=== PATIENT | male | born 1935 | race Caucasian/White ===

== ENCOUNTER 2016-10-01 22:26 | Inpatient (IN) | payer MEDICARE ==
[~2016-10-01] VITALS: Ht 175.3 cm; Wt 70.3 kg
[2016-10-01 23:11] LABS: ABG BASE EXCESS 0.4 mmol/L; ABG HCO3 23.3 mmol/L; ABG PCO2 29.8 mmHg (35.0-45.0); ABG PH 7.511 (7.350-7.450); ABG PO2 65.3 mmHg (75.0-100.0); ABG SITE LEFT RADIAL; ABG TOTAL HEMOGLOBIN 6.5 G/dL (13.5-18.0); COHb 2.4 % (0.5-1.5); MetHb 0.7 % (0.0-1.5); O2Hb 89.6 % (94.0-97.0); VENT MODE Nasal Cannula
[2016-10-01 23:38] LABS: BASOPHILS # (AUTO) 0.1 K/uL (0.0-8.0); BASOPHILS % (AUTO) 0.3 % (0.0-2.0); LYMPHOCYTES # (AUTO) 23.8 K/UL (0.8-4.8); LYMPHOCYTES % (AUTO) 75.7 % (20.5-51.5); MEAN CORPUSCULAR HEMOGLOBIN 33.7 UUG (27.0-31.0); MEAN CORPUSCULAR HGB CONC 32 g/dL (32.0-37.0); MEAN CORPUSCULAR VOLUME 106.1 FL (82.0-92.0); MONOCYTES # (AUTO) 2.2 K/UL (0.1-1.30); MONOCYTES % (AUTO) 6.9 % (0.0-11.0); NEUTROPHILS # (AUTO) 5.4 K/UL (1.8-8.9); NEUTROPHILS % (AUTO) 17.1 % (38.5-71.5); PLATELET COUNT (AUTO) 125 K/UL (150-450)
[2016-10-01 23:46] LABS: CARBON DIOXIDE 25 mmol/L (21-32); CHLORIDE 105 mmol/L (98-107); CREATININE 1.3 mg/dL (0.6-1.3); GLUCOSE 93 mg/dL (74-106); POTASSIUM 4.4 mmol/L (3.5-5.1); UREA NITROGEN, BLOOD 51 mg/dL (7-18)
[2016-10-01 23:55] LABS: HEMATOCRIT 19.2 % (40-50); HEMOGLOBIN 6.1 G/DL (14.0-18.0); RED BLOOD CELL COUNT(AUTO) 1.81 MIL/UL (4.7-6.1); WHITE BLOOD COUNT (AUTO) 31.5 K/UL (4.0-11.2)
[2016-10-02] VITALS (30 sets, daily range): BP systolic 93–148; BP diastolic 37–83
[2016-10-02 00:01] LABS: ALANINE AMINOTRANSFERASE 30 U/L (16-63); ALKALINE PHOSPHATASE 163 U/L (50-136); ASPARTATE AMINOTRANSFERASE 50 U/L (15-37); BILIRUBIN,TOTAL 1.7 mg/dL (0.2-1.0)
[2016-10-02 00:14] LABS: *OCCULT BLOOD STOOL POSITIVE (NEGATIVE)
--- NOTE | 2016-10-02 00:53 | NUR ---
PATIENT REFUSED MCKINNEY CATHER. NOTIFIED MD. MD PATRICIA FOR CONDOM CATHETER
[2016-10-02 00:55] LABS: LYMPHOCYTES % (MANUAL) 75 % (20-40); MONOCYTES % (MANUAL) 8 % (2-10); NEUTROPHILS % (MANUAL) 17 % (42-75)
--- NOTE | 2016-10-02 00:58 | NUR ---
CT QUESTIONLILIANA AND CONSENT SIGNED BY PATIENT'S , GEMA GRAHAM.
[2016-10-02] MEDS ORDERED: IBRU140C PO (01:54)
[2016-10-02] MEDS ORDERED: SERT100T PO (01:54)
[2016-10-02] MEDS ORDERED: AMLO5TAB2 PO (01:54)
[2016-10-02] MEDS ORDERED: ALLO300T2 PO (01:54)
--- NOTE | 2016-10-02 02:10 | NUR ---
Patient returned from CT. No acute distress noted. No cardiorespiratory distress noted.
--- NOTE | 2016-10-02 04:00 | NUR ---
1st transfusion PRBCs started at 0239. Verified unit with 2nd RN, Chris Landeros RN See vitals documentation
--- NOTE | 2016-10-02 05:00 | NUR ---
Pt. admitted to CCU-2 in ZAKIYA-status, under care of Dr. Anderson. Belongs List completed. Transported with ACLS protocol.
--- NOTE | 2016-10-02 05:15 | NUR ---
Admitted an 81 years old male patient from ER via [facility] with DX: sepsis, and severe anemia. To CCU 2. Assessment completed. With multiple skin insults. Pictures taken and documented.
--- NOTE | 2016-10-02 05:50 | NUR ---
2nd unit of PRBCs started. at bedside. Admission data completed. Patient's Radhika informed of plan of care. Verbalized understanding.
--- NOTE | 2016-10-02 06:00 | NUR ---
Per Dr Mcfarland, ER-MD, patient's primary physician, Dr. Smallwood, called. Message left to notify that patient has been admitted.
--- NOTE | 2016-10-02 07:20 | NUR ---
Spoke to Dr. Allen about patient's status. Orders received. Blood infusing well.
[2016-10-02 09:18] LABS: *BILIRUBIN,URIN NEGATIVE (NEGATIVE); *BLOOD, URINE 3+ (NEGATIVE); *COLOR,URINE YELLOW (YELLOW); *KETONES,URINE NEGATIVE (NEGATIVE); LEUKOCYTE ESTERASE ,URINE NEGATIVE (NEGATIVE); NITRITE, URINE NEGATIVE (NEGATIVE); PH,URINE 5.5 (5.0-8.0); UGLUCOSE NEGATIVE (NEGATIVE)
[2016-10-02 09:31] LABS: *CLARITY,URINE HAZY (CLEAR); *PROTEIN,URINE NEGATIVE (NEGATIVE)
[2016-10-02 09:33] LABS: BACTERIA,URINE NONE SEEN /HPF (NONE SEEN); RBC,URINE 20-50 /HPF (0-3); SQUAMOUS EPITHELIAL CELL,UR FEW /HPF (NONE SEEN); WBC,URINE 0-3 /HPF (0-3)
[2016-10-02 10:20] LABS: BASOPHILS % (AUTO) 0.1 % (0.0-2.0); HEMOGLOBIN 7.8 G/DL (14.0-18.0); LYMPHOCYTES # (AUTO) 20.8 K/UL (0.8-4.8); LYMPHOCYTES % (AUTO) 69.6 % (20.5-51.5); MEAN CORPUSCULAR HEMOGLOBIN 32.6 UUG (27.0-31.0); MEAN CORPUSCULAR HGB CONC 33 g/dL (32.0-37.0); MEAN CORPUSCULAR VOLUME 97.7 FL (82.0-92.0); MONOCYTES # (AUTO) 2.5 K/UL (0.1-1.30); MONOCYTES % (AUTO) 8.2 % (0.0-11.0); NEUTROPHILS # (AUTO) 6.6 K/UL (1.8-8.9); NEUTROPHILS % (AUTO) 22.1 % (38.5-71.5); PLATELET COUNT (AUTO) 116 K/UL (150-450); WHITE BLOOD COUNT (AUTO) 29.9 K/UL (4.0-11.2)
[2016-10-02 10:22] LABS: RED BLOOD CELL COUNT(AUTO) 2.39 MIL/UL (4.7-6.1)
[2016-10-02 10:23] LABS: HEMATOCRIT 23.3 % (40-50)
[2016-10-02 10:33] LABS: ALANINE AMINOTRANSFERASE 27 U/L (16-63); ALKALINE PHOSPHATASE 147 U/L (50-136); ASPARTATE AMINOTRANSFERASE 46 U/L (15-37); BILIRUBIN,TOTAL 3.3 mg/dL (0.2-1.0); CARBON DIOXIDE 23 mmol/L (21-32); CHLORIDE 107 mmol/L (98-107); CREATININE 1.1 mg/dL (0.6-1.3); GLUCOSE 90 mg/dL (74-106); PHOSPHOROUS 5.1 mg/dL (2.5-4.9); POTASSIUM 4.1 mmol/L (3.5-5.1); TOTAL PROTEIN, SERUM 4.9 g/dL (6.4-8.2); UREA NITROGEN, BLOOD 45 mg/dL (7-18)
[2016-10-02 11:24] LABS: BAND % (MANUAL) 13 % (0-10); LYMPHOCYTES % (MANUAL) 61 % (20-40); MONOCYTES % (MANUAL) 3 % (2-10); NEUTROPHILS % (MANUAL) 23 % (42-75)
--- NOTE | 2016-10-02 11:39 | NUR ---
CLINICAL PHARMACY NOTE:VANCOMYCIN DOSING Subjective: To continue vancomycin dosing on 81 y/o male for cellulitis,sepsis, pna. patient received vanco 1gm IVPB x1 in ED on 10/01 at 2330 ht 5'9'' wt 163 lb Objective: Temp 98 BUN 45 Scr 1.1 WBC 29.9 (hx-CLL) Assessment/Plan: will start vancomycin 1250mg IVPB q20h for predicted vanco trough level of 16.6 mcg/ml at steady state. 1st dose of this regimen is due today at 1999. Plan to draw vanco trough level before 4th dose (not yet ordered) Will continue monitoring renal function and will adjust if were to change. Will continue to follow
--- NOTE | 2016-10-02 20:00 | NUR ---
at bedside & spoke to Dr Allen via telephone. Updated as to nursing cares.
--- NOTE | 2016-10-02 23:15 | NUR ---
ROBERT CARBALLO NWing at bedside / assess patient.
[2016-10-03] VITALS (27 sets, daily range): BP systolic 90–122; BP diastolic 34–73
[2016-10-03 05:35] LABS: BASOPHILS % (AUTO) 0.1 % (0.0-2.0); HEMOGLOBIN 7.2 G/DL (14.0-18.0); LYMPHOCYTES # (AUTO) 15.9 K/UL (0.8-4.8); LYMPHOCYTES % (AUTO) 60.8 % (20.5-51.5); MEAN CORPUSCULAR HEMOGLOBIN 32.9 UUG (27.0-31.0); MEAN CORPUSCULAR HGB CONC 33 g/dL (32.0-37.0); MEAN CORPUSCULAR VOLUME 99.5 FL (82.0-92.0); MONOCYTES # (AUTO) 1.9 K/UL (0.1-1.30); MONOCYTES % (AUTO) 7.3 % (0.0-11.0); NEUTROPHILS # (AUTO) 8.3 K/UL (1.8-8.9); NEUTROPHILS % (AUTO) 31.8 % (38.5-71.5); PLATELET COUNT (AUTO) 110 K/UL (150-450); WHITE BLOOD COUNT (AUTO) 26.1 K/UL (4.0-11.2)
[2016-10-03 06:04] LABS: ALANINE AMINOTRANSFERASE 23 U/L (16-63); ALKALINE PHOSPHATASE 129 U/L (50-136); ASPARTATE AMINOTRANSFERASE 42 U/L (15-37); BILIRUBIN,TOTAL 4.2 mg/dL (0.2-1.0); CARBON DIOXIDE 25 mmol/L (21-32); CHLORIDE 109 mmol/L (98-107); CHOLESTEROL 52 mg/dL (<200); CREATININE 0.9 mg/dL (0.6-1.3); GLUCOSE 96 mg/dL (74-106); HDL CHOLESTEROL 14 mg/dL (40-60); MAGNESIUM 2.2 mg/dL (1.8-2.4); POTASSIUM 3.7 mmol/L (3.5-5.1); TOTAL PROTEIN, SERUM 4.8 g/dL (6.4-8.2); TRIGLYCERIDES 51 MG/DL (30-150); UREA NITROGEN, BLOOD 41 mg/dL (7-18)
[2016-10-03 06:11] LABS: LIPASE 29 U/L (73-393)
[2016-10-03 06:15] LABS: THYROID STIMULATING HORMONE 2.902 mIU/mL (0.358-3.740)
[2016-10-03 06:16] LABS: HEMATOCRIT 21.8 % (40-50); RED BLOOD CELL COUNT(AUTO) 2.19 MIL/UL (4.7-6.1)
--- NOTE | 2016-10-03 07:30 | NUR ---
Report received.Pt remains awake,responsive to tactile,verbal stimuli.No s/s of distress.SR on monitor.O2 at 2l via NC tolerated well.Seen,examined by .
[2016-10-03 09:44] LABS: BAND % (MANUAL) 9 % (0-10); LYMPHOCYTES % (MANUAL) 65 % (20-40); METAMYELOCYTES % 1 % (0-1); MONOCYTES % (MANUAL) 4 % (2-10); NEUTROPHILS % (MANUAL) 21 % (42-75)
--- NOTE | 2016-10-03 09:48 | NUR ---
Blood transfusion in progress.No adverse reaction noted.Will continue to monitor
--- NOTE | 2016-10-03 10:06 | NUR ---
CLINICAL PHARMACY NOTE:VANCOMYCIN DOSING Subjective: To continue vancomycin dosing on 81 y/o male for cellulitis,sepsis, pna. ht 5'9'' wt 163 lb Objective: Temp 97.2 BUN 41 Scr 0.9 WBC 26.1 (hx-CLL) Assessment/Plan: Since srcr has decreased, will change vancomycin 1250mg IVPB q20h to vancomycin 1250mg IVPB q19h for predicted vanco trough level of 16 mcg/ml at steady state. 2nd dose of this regimen is due today at 1500. Plan to draw vanco trough level before 4th dose (not yet ordered) Will continue monitoring renal function and will adjust if were to change. Will continue to follow
--- NOTE | 2016-10-03 10:47 | NUR ---
Pt at bedside,updated on pt information.
--- NOTE | 2016-10-03 11:00 | NUR ---
Pt refusing to sign consent for Nuclear study till she speaks with .Called [facility],left message for .
--- NOTE | 2016-10-03 12:00 | NUR ---
Blood transfusion completed.Pt tolerated procedure well.
--- NOTE | 2016-10-03 13:36 | NUR ---
Spoke with regarding Nuclear Test.Informed him that refusing the test.New orders received to cancel test.
--- NOTE | 2016-10-03 14:10 | NUR ---
SPOKE WITH REGARDING PT IS POSITIVE FOR MRSA IN NARES.NO NEW ORDERS.
--- NOTE | 2016-10-03 16:26 | NUR ---
PT IS AGITATED,TRYING TO GET OUT OF BED,SHAKING.MEDICATED WITH ATIVAN 0.5MG IV.WILL CONTINUE TO MONITOR.
--- NOTE | 2016-10-03 17:05 | NUR ---
CALLED YESEN[facility] FLORES TO REPORT TEMP 101.1 RECTAL.NO NEW ORDERS.MEDICATED WITH TYLENOL PER RECTUM,COOLING MEASURES APPLIED.
--- NOTE | 2016-10-03 23:50 | NUR ---
RECEIVED PATIENT TRANSFER FROM CCU,TELE -TD STATUS, PATIENT DROWSY/SEDATED,RESPONSIVE TO PAINFUL STIMULI,TEMP 98.9 AXILLARY,BP 105/54, O2 SAT 95% ON O2 2L/M VIA N/C,SR ON TELE MONITOR,NO S/S OF DISTRESS NOTED,PICC LINE TO RIGHT UPPER ARM,NPO STATUS, IVF GOING ON,TURN AND REPOSITION,SKIN CARE PROVIDED.
--- NOTE | 2016-10-03 23:50 | NUR ---
Pt transferred to Room 211 via bed, ZAKIYA status, accompanied by Second Floor RNs.
[2016-10-04] VITALS: BP 105/54
[2016-10-04 04:00] VITALS: BP 102/60
--- NOTE | 2016-10-04 06:17 | NUR ---
PATIENT IS AFEBRILE,NON VERBAL,RESPONSIVE TO VERBAL STIMULI SMILE,BUT UNABLE TO FOLLOW SIMPLE INSTRUCTIONS,REMAINS LETHARGIC,GENERALIZED EDEMATOUS NOTE,NSR ON MONITOR.
[2016-10-04 06:55] LABS: BASOPHILS # (AUTO) 0.2 K/uL (0.0-8.0); BASOPHILS % (AUTO) 0.9 % (0.0-2.0); LYMPHOCYTES # (AUTO) 9.6 K/UL (0.8-4.8); MEAN CORPUSCULAR HEMOGLOBIN 31.5 UUG (27.0-31.0); MEAN CORPUSCULAR HGB CONC 32 g/dL (32.0-37.0); MEAN CORPUSCULAR VOLUME 97.5 FL (82.0-92.0); MONOCYTES # (AUTO) 0.3 K/UL (0.1-1.30); MONOCYTES % (AUTO) 1.4 % (0.0-11.0); NEUTROPHILS # (AUTO) 9.2 K/UL (1.8-8.9); NEUTROPHILS % (AUTO) 47.7 % (38.5-71.5)
[2016-10-04 06:56] LABS: HEMATOCRIT 25.6 % (40-50); HEMOGLOBIN 8.3 G/DL (14.0-18.0); RED BLOOD CELL COUNT(AUTO) 2.63 MIL/UL (4.7-6.1); WHITE BLOOD COUNT (AUTO) 19.3 K/UL (4.0-11.2)
[2016-10-04 06:57] LABS: PLATELET COUNT (AUTO) 83 K/UL (150-450)
--- NOTE | 2016-10-04 07:30 | NUR ---
Lethargic, but easily arousable, responds to verbal and painful stimuli. Confused, garbled speech. On moderate high back rest. O2 at 3L/NC with O2 sat og 99%. Noted wheezing. IVF infusing.
[2016-10-04 08:00] VITALS: BP 109/46
[2016-10-04 08:04] LABS: BAND % (MANUAL) 7 % (0-10); EOSINOPHILS % (MANUAL) 1 % (0-8); LYMPHOCYTES % (MANUAL) 46 % (20-40); METAMYELOCYTES % 4 % (0-1); MONOCYTES % (MANUAL) 4 % (2-10); MYELOCYTES % 2 % (0-0); NEUTROPHILS % (MANUAL) 36 % (42-75)
--- NOTE | 2016-10-04 10:00 | NUR ---
Sponge bath given. Wound care done. Repositioned comfortably.
[2016-10-04 10:03] LABS: ALANINE AMINOTRANSFERASE 21 U/L (16-63); ALKALINE PHOSPHATASE 126 U/L (50-136); ASPARTATE AMINOTRANSFERASE 34 U/L (15-37); BILIRUBIN,TOTAL 5.7 mg/dL (0.2-1.0); CARBON DIOXIDE 23 mmol/L (21-32); CHLORIDE 114 mmol/L (98-107); CREATININE 0.8 mg/dL (0.6-1.3); GLUCOSE 121 mg/dL (74-106); MAGNESIUM 2.4 mg/dL (1.8-2.4); PHOSPHOROUS 3.9 mg/dL (2.5-4.9); POTASSIUM 3.5 mmol/L (3.5-5.1); TOTAL PROTEIN, SERUM 4.6 g/dL (6.4-8.2); UREA NITROGEN, BLOOD 44 mg/dL (7-18)
[2016-10-04 11:40] VITALS: BP 101/42
--- NOTE | 2016-10-04 13:00 | NUR ---
Started on pureed diet, assisted by , tolerated.
[2016-10-04 13:08] LABS: HEPATITIS B SURFACE AB Non Reactive (.); HEPATITIS B SURFACE AG Negative (Negative)
--- NOTE | 2016-10-04 13:30 | NUR ---
PT gia initiated.
--- NOTE | 2016-10-04 14:20 | NUR ---
CLINICAL PHARMACY NOTE:VANCOMYCIN DOSING Subjective: To continue vancomycin dosing on 81 y/o male for cellulitis,sepsis, pna. ht 5'9'' wt 163 lb Objective: Temp 98.9 BUN 44 Scr 0.8 WBC 19.3 (hx-CLL) Assessment/Plan: Continue vancomycin 1250mg IVPB q19h for predicted vanco trough level of 16 mcg/ml at steady state. 3rd dose of this regimen was given today at 1021. Plan to draw vanco trough level before 4th dose (ordered for tomorrow at 0430). Will continue monitoring renal function and will adjust if were to change. Will continue to follow
--- NOTE | 2016-10-04 14:49 | NUR ---
Echo cardio gram done at bedside
[2016-10-04 15:56] VITALS: BP 109/51
--- NOTE | 2016-10-04 16:38 | NUR ---
Discharge Plan: Provided a New Lifestyles booklet to the patient's , Radhika. She requested for his information to be faxed to the following facilities in order of preference: 1. [facility] - - [facility] stated that they will admit the patient once stable 2. [facility] - - [facility]ia confirmed that they will have a bed available for the patient 3. [facility] - - Nelly said they will be able to accommodate the patient.
--- NOTE | 2016-10-04 17:46 | NUR ---
Assisted with dinner, able to consume 75% of food served. Repositioned comfortably in bed.
--- NOTE | 2016-10-04 20:00 | NUR ---
PATIENT MORE ALERT,VERBALLY RESPONSIVE,AFEBRILE,TOLERATED O2 2 L/M VIA N/C,O2 SAT 95%,MILD WHEEZING NOTED,CONTACT ISOLATION MRSA OF NARES AND WOUND,FALL AND ASPIRATION PRECAUTIONS,BED ALARM ON.CLOSELY MONITOR.
[2016-10-04 20:35] VITALS: BP 121/55
--- NOTE | 2016-10-04 21:39 | NUR ---
PATIENT GOT AGITATED,RESTLESS, ATTEMPT GETTING OUT OF BED,REMOVED TELE MONITOR AND OXYGEN,ATIVAN 0.5 MG IV GIVEN,REASSESS PATIENT CALM DOWN TALKING TO SELF,NO DISTRESS NOTED.
[2016-10-05 00:10] VITALS: BP 125/62
[2016-10-05 04:00] VITALS: BP 122/69
[2016-10-05 04:52] LABS: BASOPHILS # (AUTO) 0.2 K/uL (0.0-8.0); BASOPHILS % (AUTO) 1.3 % (0.0-2.0); EOSINOPHILS % (AUTO) 0.1 % (0.0-7.0); HEMATOCRIT 24.9 % (40-50); HEMOGLOBIN 8.3 G/DL (14.0-18.0); LYMPHOCYTES # (AUTO) 7.3 K/UL (0.8-4.8); LYMPHOCYTES % (AUTO) 44.9 % (20.5-51.5); MEAN CORPUSCULAR HEMOGLOBIN 32.5 UUG (27.0-31.0); MEAN CORPUSCULAR HGB CONC 33 g/dL (32.0-37.0); MEAN CORPUSCULAR VOLUME 97.5 FL (82.0-92.0); MONOCYTES # (AUTO) 0.3 K/UL (0.1-1.30); MONOCYTES % (AUTO) 1.9 % (0.0-11.0); NEUTROPHILS # (AUTO) 8.4 K/UL (1.8-8.9); NEUTROPHILS % (AUTO) 51.8 % (38.5-71.5); PLATELET COUNT (AUTO) 76 K/UL (150-450); RED BLOOD CELL COUNT(AUTO) 2.55 MIL/UL (4.7-6.1); WHITE BLOOD COUNT (AUTO) 16.2 K/UL (4.0-11.2)
[2016-10-05 04:58] LABS: ALANINE AMINOTRANSFERASE 23 U/L (16-63); ALKALINE PHOSPHATASE 149 U/L (50-136); ASPARTATE AMINOTRANSFERASE 36 U/L (15-37); BILIRUBIN,TOTAL 5.6 mg/dL (0.2-1.0); CARBON DIOXIDE 26 mmol/L (21-32); CHLORIDE 116 mmol/L (98-107); GLUCOSE 119 mg/dL (74-106); MAGNESIUM 2.1 mg/dL (1.8-2.4); PHOSPHOROUS 2.9 mg/dL (2.5-4.9); POTASSIUM 3.3 mmol/L (3.5-5.1); TOTAL PROTEIN, SERUM 4.4 g/dL (6.4-8.2); UREA NITROGEN, BLOOD 43 mg/dL (7-18)
[2016-10-05 05:14] LABS: BAND % (MANUAL) 5 % (0-10); LYMPHOCYTES % (MANUAL) 44 % (20-40); METAMYELOCYTES % 2 % (0-1); NEUTROPHILS % (MANUAL) 49 % (42-75)
--- NOTE | 2016-10-05 05:59 | NUR ---
PATIENT AFEBRILE,BP 122/69,O2 SAT 97% ON O2 3L/M,VIA N/C,ADEQUATE URINE OUT PUT,PATIENT MORE ALERT,ABLE TO FOLLOW SIMPLE COMMAND,REQUIRED FREQUENT SUCTION,HOB ELEVATED,MOUTH CARE GIVEN.NSR ON MONITOR.
--- NOTE | 2016-10-05 08:00 | NUR ---
awake alert but confused, head of bed elevated, repositioned up in bed for breakfast, fed by concrete mason,- aspiration precautions observed, tele SR 80's, on 3l/nc, has some wheezing, picc line on the right upper arm in place, safety measures maintained, bed alarm on.
[2016-10-05 11:05] VITALS: BP 91/56
--- NOTE | 2016-10-05 12:19 | NUR ---
WOUND CARE CONSULT: PT PRESENTS WITH INTACT DEEP TISSUE INJURY TO SACRAL AREA AND RT LOWER LEG OPEN WOUND, SKIN TEAR TO LEFT ELBOW, PRESENT ON ADMISSION. MULTIPLE AREAS OF BRUISING NOTED WITH GENERALIZED EDEMA. SKIN COLOR IS YELLOWISH WITH RED AREAS. PT ON FIRST STEP MATTRESS. ALL SKIN PROTECTION MEASURES IN PLACE AND DISCUSSED WITH NURSING STAFF. WILL SEE PRN. CARVAJAL IN AGREEMENT WITH PLAN OF CARE. Addendum: 10/05/16 at 1221 by VAMSI VENEGAS RN Amended: Links added.
--- NOTE | 2016-10-05 13:11 | NUR ---
RESTLESS/AGITATED, LEGS OVER RAILS, AT BEDSIDE, MEDICATED WITH ATIVAN 0.5 MG IV PRN- WILL MONITOR CLOSELY, TELE SR 90'S, SAFETY MEASURES MAINTAINED
--- NOTE | 2016-10-05 14:00 | NUR ---
glenda at this time, at bedside, remains DR on tele, safety measures maintained
[2016-10-05 15:01] VITALS: BP 139/66
--- NOTE | 2016-10-05 15:11 | NUR ---
CLINICAL PHARMACY NOTE:VANCOMYCIN DOSING Subjective: To continue vancomycin dosing on 81 y/o male for cellulitis,sepsis, pna. ht 5'9'' wt 163 lb Objective: Temp 98.9 BUN 43 Scr 1.0 WBC 16.2 (hx-CLL) Vancomycin trough 12.7 today at 0430 Wound culture positive of MRSA Assessment/Plan: Since trough is under 15, will increase Vancomycin to 1250mg IVPB q17h for predicted vanco trough level of 15.5 mcg/ml at steady state. 2rd dose of this regimen is tonight at 2200. Plan to draw vanco trough level before 4th dose (not ordered yet). Will continue monitoring renal function and will adjust if were to change. Will continue to follow
--- NOTE | 2016-10-05 16:00 | NUR ---
seen by Dr. Henry santos
--- NOTE | 2016-10-05 18:49 | NUR ---
resting in bed, arouses easily, repositioned q 2h with heels off loaded with pillows, on 3l/nc, tele sr, no distress noted, all needs attended and met
[2016-10-05 20:00] VITALS: BP 124/72
--- NOTE | 2016-10-05 20:00 | NUR ---
PATIENT AWAKE,SLIGHTLY RESTLESS,TURN AND REPOSITION,ORAL AND SKIN CARE DONE,HOB ELEVATED,ASPIRATION AND FALL PRECAUTIONS ,ON O2 4 L/M O2 SAT 94%,MILD SOB NOTED.
--- NOTE | 2016-10-05 21:30 | NUR ---
PATIENT VERY AGITATED,RESTLESS,ATIVAN 0.5 MG IV ADMIN,CONTINUE CLOSE MONITORING,BED ALARM ON.
[2016-10-06 00:36] VITALS: BP 140/64
[2016-10-06 04:00] VITALS: BP 131/64
--- NOTE | 2016-10-06 04:00 | NUR ---
PATIENT RESTLESS,MOANING,MORPHINE 2 MG IV ADMIN FOR PAIN.
--- NOTE | 2016-10-06 06:00 | NUR ---
PATIENT IN MILD DISTRESS,CRACKLES BREATH SOUNDS, WAS NOTIFIED,ORDER RECEIVED,BUMEX 2 MG IV GIVEN ORDERED.
[2016-10-06 06:49] LABS: CARBON DIOXIDE 31 mmol/L (21-32); CHLORIDE 117 mmol/L (98-107); CREATININE 0.8 mg/dL (0.6-1.3); GLUCOSE 103 mg/dL (74-106); POTASSIUM 3.4 mmol/L (3.5-5.1); UREA NITROGEN, BLOOD 45 mg/dL (7-18)
--- NOTE | 2016-10-06 07:00 | NUR ---
RECEIVED PATIENT IN SEVERE RESPIRATORY DISTRESS WITH 4L O2 SATURATING AT 85-88%, WARM AND DRY SKIN, SR-ST ON MONITOR. PLACED 8L O2 VIA MASK, SAT WENT TO 95-97%, T-98.5 CLOSELY MONITORED
--- NOTE | 2016-10-06 08:00 | NUR ---
PT LOOKING BETTER SAT SUSTAINING AT 95%, LESS AGITATED AND RESTLESS. WILL CONTINUE TO MONITOR
--- NOTE | 2016-10-06 09:30 | NUR ---
DR SINGER IN SPOKE TO REGARDING PLAN OF CARE AND ADVANCE DIRECTIVES. PATIENT CODE STATUS CHANGED TO DNR/DNI. STARTED BUMEX ORDERED. FAMILY REMAINS AT BEDSIDE. SR ON MONITOR. CONTINUE MORPHINE FOR PAIN MGT. WITH GOOD RESULTS.
--- NOTE | 2016-10-06 10:00 | NUR ---
K 3.4 MD NOTED OF RESULTS WITH IV KCL ORDER AND INFUSED
[2016-10-06 11:33] LABS: ABG BASE EXCESS 1.4 mmol/L; ABG HCO3 25.7 mmol/L; ABG PCO2 39.1 mmHg (35.0-45.0); ABG PH 7.436 (7.350-7.450); ABG PO2 89.7 mmHg (75.0-100.0); ABG SITE RIGHT RADIAL; ABG TOTAL HEMOGLOBIN 8.5 G/dL (13.5-18.0); COHb 2.3 % (0.5-1.5); MetHb 0.6 % (0.0-1.5); O2Hb 93.7 % (94.0-97.0)
[2016-10-06 11:52] VITALS: BP 136/70
--- NOTE | 2016-10-06 12:00 | NUR ---
MD SPOKE AGAIN WITH REGARDING COMFORT MEASURE AND SAID TO WAIT FOR DAUGHTER FROM [place] WILL ARRIVE TENTATIVELY TOMORROW OR FRI
--- NOTE | 2016-10-06 14:08 | NUR ---
CLINICAL PHARMACY NOTE:VANCOMYCIN DOSING Subjective: To continue vancomycin dosing on 81 y/o male for cellulitis,sepsis, pna. ht 5'9'' wt 163 lb Objective: Temp 98.5 BUN 45 Scr 0.8 WBC 16.2 (10/06, hx-CLL) Vancomycin trough 12.7 10/05 at 0430 Wound culture positive of MRSA Assessment/Plan: Will continue new regimen of Vancomycin to 1250mg IVPB q17h for predicted vanco trough level of 15.5 mcg/ml at steady state. 3rd dose today at 1500. Plan to draw vanco trough level before 4th dose (due tomorrow 10/07 @ 0730). Will check trough in am and adjust as needed. Will continue to monitor
[2016-10-06 15:29] VITALS: BP 127/61
--- NOTE | 2016-10-06 17:39 | NUR ---
CONTINUE CURRENT TX PLAN AND PAIN MGT. REMAINS SR/ST ON MONITOR
[2016-10-06 19:00] VITALS: BP 128/61
[2016-10-07 00:07] VITALS: BP 128/89
--- NOTE | 2016-10-07 01:05 | NUR ---
RECEIVED PATIENT AGITATED IN BED. ON FACE MASK 8L SATS AT 96%. LETHARGIC AND MOANS TO PAIN. ON DNR/DNI STATUS. GIVEN IV MORPHINE ORDERED. NOTED MULTIPLE AREAS OF SKIN TEAR, SUPERFICIAL WOUNDS, RED AREAS AND RASHES. MCKINNEY IN PLACED DRAINING HIGH VOLUME OF YELLOW URINE. PATIENT IS SLEEPING INTERMITTENTLY AND TRASHING IN BED. KEPT SAFE AND MONITORED.
[2016-10-07 01:12] LABS: *IMMUNOGLOBULIN G, SERUM 133 mg/dL (700-1600); IMMUNOGLOBULIN A, SERUM 20 mg/dL (61-437); IMMUNOGLOBULIN M, SERUM <5 mg/dL (15-143)
[2016-10-07 04:00] VITALS: BP 132/58
[2016-10-07 06:34] LABS: BASOPHILS % (AUTO) 0.1 % (0.0-2.0); EOSINOPHILS % (AUTO) 0.2 % (0.0-7.0); HEMATOCRIT 24.9 % (40-50); HEMOGLOBIN 8.1 G/DL (14.0-18.0); LYMPHOCYTES % (AUTO) 48.9 % (20.5-51.5); MEAN CORPUSCULAR HEMOGLOBIN 32.2 UUG (27.0-31.0); MEAN CORPUSCULAR HGB CONC 33 g/dL (32.0-37.0); MEAN CORPUSCULAR VOLUME 98.6 FL (82.0-92.0); MONOCYTES # (AUTO) 1.1 K/UL (0.1-1.30); MONOCYTES % (AUTO) 5.7 % (0.0-11.0); NEUTROPHILS # (AUTO) 8.3 K/UL (1.8-8.9); NEUTROPHILS % (AUTO) 45.1 % (38.5-71.5); PLATELET COUNT (AUTO) 64 K/UL (150-450); RED BLOOD CELL COUNT(AUTO) 2.53 MIL/UL (4.7-6.1); WHITE BLOOD COUNT (AUTO) 18.4 K/UL (4.0-11.2)
--- NOTE | 2016-10-07 06:42 | NUR ---
PATIENT BECAME VERY RESTLESS AGAIN THIS MORNING, ANOTHER DOSE OF IV MORPHINE WAS GIVEN ORDERED.
[2016-10-07 06:47] LABS: CARBON DIOXIDE 38 mmol/L (21-32); CHLORIDE 116 mmol/L (98-107); CREATININE 1.1 mg/dL (0.6-1.3); GLUCOSE 99 mg/dL (74-106); UREA NITROGEN, BLOOD 52 mg/dL (7-18)
[2016-10-07 06:55] LABS: BAND % (MANUAL) 13 % (0-10); EOSINOPHILS % (MANUAL) 1 % (0-8); LYMPHOCYTES % (MANUAL) 59 % (20-40); MONOCYTES % (MANUAL) 3 % (2-10); NEUTROPHILS % (MANUAL) 24 % (42-75)
--- NOTE | 2016-10-07 07:54 | NUR ---
RESPIRATORY STATUS STABLE BUT WITH PERIODS OF RESTLESSNESS AND TRYING TO GET OUT OF BED AND REMOVING O2 MASK CLOSELY MONITORED SR ON MONITOR. CONTINUE CURRENT TX PLAN
--- NOTE | 2016-10-07 08:19 | NUR ---
CLINICAL PHARMACY NOTE:VANCOMYCIN DOSING Subjective: To continue vancomycin dosing on 81 y/o male for cellulitis,sepsis, pna. ht 5'9'' wt 163 lb Objective: Temp 98.7 BUN 52 Scr 1.1 WBC 18.4 (10/06, hx-CLL) Vancomycin trough 18.1 Wound culture positive of MRSA Assessment/Plan: Since vanco trough level is within therapeutic range of 15-20 mcg/ml, will continue same dose of Vancomycin to 1250mg IVPB q17h for today. Next dose is due today at 0800. Will monitor renal function & adjust the dose if needed. Will continue to monitor
[2016-10-07 11:22] VITALS: BP 130/64
--- NOTE | 2016-10-07 12:00 | NUR ---
NO CHANGE FROM INITIAL ASSESSMENT, STILL WITH ON VOCATIONAL TECHNICAL EDUCATION DIRECTOR OFF RESTLESSNESS AND MOANING RELIEVED WITH MORPHINE. SEEN BY DR FEUNTES [facility]
[2016-10-07 12:09] LABS: A/G RATIO 0.6 (0.7-1.7); AFP, TUMOR MARKER <0.7 ng/mL (0.0-8.3); ALBUMIN 1.5 g/dL (2.9-4.4); ALPHA-1-GLOBULIN 0.4 g/dL (0.0-0.4); ALPHA-2-GLOBULIN 0.8 g/dL (0.4-1.0); BETA GLOBULIN 0.5 g/dL (0.7-1.3); GAMMA GLOBULIN 0.8 g/dL (0.4-1.8); GLOBULIN, TOTAL 2.5 g/dL (2.2-3.9); M-SPIKE 0.6 g/dL (Not Observed)
--- NOTE | 2016-10-07 15:54 | NUR ---
COMPLETE BED BATH GIVEN, CONTINUE PAIN MGT
--- NOTE | 2016-10-07 17:45 | NUR ---
SEEN BY DR NUNEZ SEE NOTES
[2016-10-07 20:00] VITALS: BP 123/59
--- NOTE | 2016-10-07 22:00 | NUR ---
Condition unchanged, w/ on & off restlessness noted. Medicated for pain PRN.
--- NOTE | 2016-10-08 02:53 | NUR ---
RECEIVED PATIENT COMFORTABLE IN BED. LETHARGIC RESPONDING TO LIGHT TOUCH. FACE MASK AT 10L SATS >95%. VS ARE STABLE. MCKINNEY IN PLACED AND PATENT. DNR/DNI STATUS. PATIENT HAS INTERMITTENT EPISODE OF RESTLESSNESS TRASHING IN BED, GIVEN IV MORPHINE ORDERED. OTHERWISE MAINTAINED COMFORT AND SAFETY.
[2016-10-08 05:00] VITALS: BP 133/58
--- NOTE | 2016-10-08 07:30 | NUR ---
RECIEVED PT LYING IN BED, LETHARGIC BUT EASILY AROUSABLE TO CALL. GENERALLY WEAL AND COLOR IS YELLOWISH. APHASIC AND RESTLESS AT TIMES. PICC LINE ON THE RIGHT UPPER ARM INTACT AND PATENT. PT IS A DNR/DNI STATUS. FREQUENT REPOSITIONING TO HIS SIDE. AFEBRILE. SOFT WRIST RESTRAINTS IN PLACE TO BOTH HANDS FOR SAFETY MEASURES.
[2016-10-08 08:42] LABS: BASOPHILS % (AUTO) 0.1 % (0.0-2.0); EOSINOPHILS % (AUTO) 0.1 % (0.0-7.0); HEMATOCRIT 25.5 % (40-50); HEMOGLOBIN 8.3 G/DL (14.0-18.0); LYMPHOCYTES # (AUTO) 11.7 K/UL (0.8-4.8); LYMPHOCYTES % (AUTO) 48.2 % (20.5-51.5); MEAN CORPUSCULAR HEMOGLOBIN 32.1 UUG (27.0-31.0); MEAN CORPUSCULAR HGB CONC 32 g/dL (32.0-37.0); MEAN CORPUSCULAR VOLUME 99.1 FL (82.0-92.0); MONOCYTES # (AUTO) 1.1 K/UL (0.1-1.30); MONOCYTES % (AUTO) 4.6 % (0.0-11.0); NEUTROPHILS # (AUTO) 11.4 K/UL (1.8-8.9); RED BLOOD CELL COUNT(AUTO) 2.57 MIL/UL (4.7-6.1)
[2016-10-08 08:44] LABS: CARBON DIOXIDE 38 mmol/L (21-32); CHLORIDE 119 mmol/L (98-107); CREATININE 1.3 mg/dL (0.6-1.3); GLUCOSE 104 mg/dL (74-106); POTASSIUM 3.6 mmol/L (3.5-5.1); UREA NITROGEN, BLOOD 70 mg/dL (7-18)
[2016-10-08 09:03] LABS: PLATELET COUNT (AUTO) 55 K/UL (150-450); WHITE BLOOD COUNT (AUTO) 24.2 K/UL (4.0-11.2)
--- NOTE | 2016-10-08 10:00 | NUR ---
AT THE BEDSIDE. STATED AWAITING FOR HER DAUGHTER TO ARRIVE FROM [place] AND WILL DECIDE FOR PT COMFORT MEASURES. PT APPEARS TO BE RESTLESS AT TIMES BUT EASILLY FALLEN BACK TO SLEEP.
--- NOTE | 2016-10-08 11:00 | NUR ---
SEEN AND EXAMINED BY DR DEAN AND SPOKEN TO .
[2016-10-08 11:10] VITALS: BP 104/51
--- NOTE | 2016-10-08 11:47 | NUR ---
CLINICAL PHARMACY NOTE:VANCOMYCIN DOSING Subjective: To continue vancomycin dosing on 81 y/o male for cellulitis,sepsis, pna. ht 5'9'' wt 163 lb Objective: Temp 98.4 BUN 70 Scr 1.3 WBC 24.2 (hx-CLL) Vancomycin trough 18.1 (10/07 @0730) Wound culture positive of MRSA Assessment/Plan: Will continue same dose of Vancomycin to 1250mg IVPB q17h based on last therapeutic trough on 10/07. Will monitor renal function & adjust the dose if needed. Will continue to monitor
[2016-10-08 11:48] LABS: BAND % (MANUAL) 10 % (0-10); LYMPHOCYTES % (MANUAL) 49 % (20-40); METAMYELOCYTES % 1 % (0-1); MONOCYTES % (MANUAL) 1 % (2-10); NEUTROPHILS % (MANUAL) 39 % (42-75)
--- NOTE | 2016-10-08 11:48 | NUR ---
MEDICATED WITH MORPHINE SULFATE 2MG SLOW IVP FOR RESTLESSNESS AND AGITATION.
--- NOTE | 2016-10-08 14:30 | NUR ---
FAMILY DECIDED TO PLACE PT UNDER HOSPICE FOR COMFORT CARE AFTER HAVING A MEETING WITH DR DEAN.
--- NOTE | 2016-10-08 14:45 | NUR ---
PT BECOMING RESTLESS. FAMILY AT THE BEDSIDE. MEDICATED AGAIN WITH MORPHINE SULFATE 2MG SLOW IVP AND CALMED DOWN. FOLLOWED BY ATIVAN 0.5MG SLOW IVP FOR AGITATION ORDERED.
[2016-10-08 15:04] VITALS: BP 145/48
--- NOTE | 2016-10-08 17:00 | NUR ---
MORPHINE DRIP AT 2MG/HR STARTED ORDERED WITH 2RN WITNESSES VIA PICC LINE. PT IS LOOKING CALM AND COMFORTABLE. O2 MASK AT 10L IN PLACE.
--- NOTE | 2016-10-08 19:00 | NUR ---
PT IS LOOKING CALM AND COMFORTABLE AT 4MG/HR OF MORPHINE DRIP. CONDITION IS UNCHANGED.
[2016-10-08 20:13] VITALS: BP 128/63
--- NOTE | 2016-10-08 21:39 | NUR ---
RECEIVED PATIENT COMFORTABLE IN BED FROM AM SHIFT. PATIENT LETHARGIC. ON OXYGEN 10L MASK. NO SIGNS OF DISTRESS NOTED AT START OF SHIFT. ON ISOLATION MRSA NARES. PATIENT ON 4MG MORPHINE IV DRIP AT START OF SHIFT. WILL CONTINUE TO MONITOR PATIENT FOR RESPIRATORY DISTRESS & PAIN. Addendum: 10/08/16 at 2212 by Alexsander Angeles RN TIME OF NOTE AT 1900.
--- NOTE | 2016-10-09 06:47 | NUR ---
PATIENT SLEEPING COMFORTABLY IN BED. ON 1L NASAL CANULA. MORPHINE DRIP ON 6MG/HR. NO SIGNS OF DISTRESS. COMFORT MEASURES IMPLEMENTED THROUGH OUT SHIFT.
--- NOTE | 2016-10-09 07:45 | NUR ---
RECEIVED PATIENT IN BED ON COMFORT MEASURES ONLY WITH MORPHINE DRIP AT 6MG/HR VIA PICC LINE ON HIS RIGHT ARM EYES ARE CLOSED AND NOTED WITH MOUTH OPEN WITH O2 AT 1L/M BY NASAL CANULA .MADE COMFORTABLE AND WILL CONTINUE TO OBSERVE.
--- NOTE | 2016-10-09 08:15 | NUR ---
OBSERVED THAT PATIENT WAS NOT BREATHING AT THIS TIME OBSERVED FOR [address] SINGER TO INFORM HIM AND CALLED ANOTHER RN FOR PRONOUNCEMENT.
--- NOTE | 2016-10-09 08:20 | NUR ---
PATIENT ON MORPHINE DRIP FOR COMFORT MEASURES. PATIENT APNEIC FOR 5 MINUTES, PUPILS FIXED AND DILATED, NO AUDIBLE HEART TONES, BREATH SOUNDS FOR 5 MINUTES, NO PALPABLE PULSES FOR 1 MINUTE, NO CORNEAL REFLEXES. PATIENT PRONOUNCED AT 0815 DR SINGER NOTIFIED. [employer] NOTIFIED # [id number], NURSING SHIP WORKER INFORMED
--- NOTE | 2016-10-09 08:30 | NUR ---
CALLED PATIENTS GEMA GRAHAM AND LEFT HER A MESSAGE ON HER VOICE MAIL AND REQUESTED FOR HER TO CALL ME SOON SHE RECEIVED THIS MESSAGE.
--- NOTE | 2016-10-09 08:45 | NUR ---
PICC LINE TO HIS RIGHT ARM REMOVED AND MCKINNEY CATHETER REMOVED BODY PREPPED AND PLACED IN THE BODY BAG AWAITING FOR THE [facility] HIS STATED THAT IT WAS OKAY TO RELEASE THE BODY BECAUSE SHE WILL NOT BE COMEING BACK TO SEE THE BODY. Addendum: 10/09/16 at 1153 by JAVI FERNÁNDEZ RN ERROR IN TIMING SHOULD BE 0945 NOT 0895
--- NOTE | 2016-10-09 09:30 | NUR ---
CALL RECEIVED FROM GEMA GRAHAM PATIENTS INFORMED HER OF HER PASSING AND SHE STATED [facility] WILL CALL THE [facility] AND WILL CALL US BACK.
--- NOTE | 2016-10-09 10:35 | NUR ---
CALL RECEIVED FROM LELAND AT THE [facility] STATED THAT SOMEONE WILL BE HERE IN ABOUT 90MINUTES TO EMISSIONS INSPECTOR THE BODY.
--- NOTE | 2016-10-09 11:40 | NUR ---
REMAINS PICKED UP BY [facility] [employer] .
== END 2016-10-09 11:40 | disposition expired | DRG 871 ==
LOC: ER 22:27 → CCU 10-02 04:40 → MED 10-03 23:50 → TELE-TD 10-04 00:01 → TELE 10-04 11:50 → MED 10-07 12:00
PROVIDERS: ADMIT Internal Medicine; ATTEND Internal Medicine
PROC: 30233N1 Transfusion of Nonautologous Red Blood Cells into Peripheral Vein, Percutaneous Approach (ICD-10-PCS; principal; 2016-10-02)
PROC: 0W993ZZ Drainage of Right Pleural Cavity, Percutaneous Approach (ICD-10-PCS; 2016-10-02)
PROC: 02HV33Z Insertion of Infusion Device into Superior Vena Cava, Percutaneous Approach (ICD-10-PCS; 2016-10-03)
PROC: B548ZZA Ultrasonography of Superior Vena Cava, Guidance (ICD-10-PCS; 2016-10-03)
DX: A41.9 Sepsis, unspecified organism (principal); N17.0 Acute kidney failure with tubular necrosis; J69.0 Pneumonitis due to inhalation of food and vomit; J96.00 Acute respiratory failure, unspecified whether with hypoxia or hypercapnia; D65 Disseminated intravascular coagulation [defibrination syndrome]; I50.31 Acute diastolic (congestive) heart failure; E43 Unspecified severe protein-calorie malnutrition; J90 Pleural effusion, not elsewhere classified; G92 Toxic encephalopathy; R53.2 Functional quadriplegia; K80.00 Calculus of gallbladder with acute cholecystitis without obstruction; L03.115 Cellulitis of right lower limb; L03.116 Cellulitis of left lower limb; C91.10 Chronic lymphocytic leukemia of B-cell type not having achieved remission; K92.2 Gastrointestinal hemorrhage, unspecified; R18.8 Other ascites; K86.2 Cyst of pancreas; I77.4 Celiac artery compression syndrome; Z51.5 Encounter for palliative care; D47.2 Monoclonal gammopathy; D69.59 Other secondary thrombocytopenia; Z66 Do not resuscitate; Z92.21 Personal history of antineoplastic chemotherapy; I70.1 Atherosclerosis of renal artery; T45.1X5A Adverse effect of antineoplastic and immunosuppressive drugs, initial encounter; Y92.009 Unspecified place in unspecified non-institutional (private) residence as the place of occurrence of the external cause; I11.0 Hypertensive heart disease with heart failure; D63.0 Anemia in neoplastic disease; R19.5 Other fecal abnormalities; Z68.22 Body mass index [BMI] 22.0-22.9, adult; E80.6 Other disorders of bilirubin metabolism; R74.8 Abnormal levels of other serum enzymes; R74.0 Nonspecific elevation of levels of transaminase and lactic acid dehydrogenase [LDH]; Z22.322 Carrier or suspected carrier of Methicillin resistant Staphylococcus aureus; K76.89 Other specified diseases of liver; Z86.73 Personal history of transient ischemic attack (TIA), and cerebral infarction without residual deficits; Z79.899 Other long term (current) drug therapy; R65.20 Severe sepsis without septic shock
CPT/HCPCS: 32555; 36415; 36569; 36600; 70030-TC; 70450; 71010; 71260; 76700; 82105; 82378; 82746; 82784; 83550; 83605; 83615; 83690; 83735; 84100; 84155; 84165; 84443; 85025; 85730; 86301; 86334; 86706; 86850; 86900; 86901; 86920; 87040; 87070; 87075; 87077; 87086; 87205; 87340; 90715; 93005; 93307; 94664; A4663; J0456; J1940; J2060; J2185; J2270; J2274; J2405; J2543; J3370; J3480; J3490; J3590; J7030; J7040; J7042; J7050; J7060; P9016-BL; P9021; Q9967